=== PATIENT | male | born 1985 | race Caucasian/White ===

== ENCOUNTER 2022-06-27 21:48 | Emergency (ER) | payer SELFPAY ==
[2022-06-27 21:58] VITALS: BP 146/87; PULSE 113; RESP 29; TEMP 36.7; O2SAT 100; BMI 25.1
--- NOTE | 2022-06-27 22:11 | XRR_ITS ---
PROCEDURE INFORMATION: Exam: XR Chest Exam date and time: 06/27/2022 10:20 PM Age: 36 years old Clinical indication: Shortness of breath; Additional info: SOB TECHNIQUE: Imaging protocol: Radiologic exam of the chest. Views: 1 view. COMPARISON: No relevant prior studies available. FINDINGS: Lungs: Unremarkable. No consolidation. Pleural spaces: Unremarkable. No pleural effusion. No pneumothorax. Heart/Mediastinum: Unremarkable. No cardiomegaly. Bones/joints: Unremarkable. XR/XR chest 1V portable [id number] IMPRESSION: No acute findings.
--- NOTE | 2022-06-27 22:12 | W.ED.SOB ---
HPI - SOB/Dyspnea General: Chief Complaint: Shortness of Breath/Dyspnea Stated Complaint: SOB, Cough Time Seen by Provider: 06/27/22 22:04 Source: patient Mode of arrival: ambulatory Limitations: no limitations History of Present Illness: HPI Narrative: 36-year-old male states throughout the day has had increasing shortness of breath he states he feels like his heart is racing he can feel something behind his heart he says he has tingling down both his arms and is having carpopedal spasms. He states he had a history of anxiety in the past. Denies any chest pain denies any fever denies any cough denies any worsening proving factors patient appears anxious here and is tachypneic. Associated symptoms: Reports palpitations; Deny abdominal pain, fever(s), nausea or vomiting Review of Systems Const: Denies: fever(s), chills, body aches or change in appetite Eyes: Denies: blurry vision or eye discomfort ENMT: Denies: throat pain or dental pain Card: Reports: palpitations Resp: Reports: dyspnea GI: Denies: abdominal pain, nausea, vomiting or diarrhea : Denies: dysuria Musc: Denies: neck pain or back pain Skin/Breast: Denies: rash Neuro: Denies: headache(s) Psych: Denies: depression Ace/Lymph: Denies: easy bruising All/Imm: Denies: urticaria PFSH ED PFSH: Social History (Updated 06/27/22 @ 22:13 by Janie Josue MD) Alcohol intake: unknown Physical Exam Const: COMMON NORMALS: patient oriented x3 GENERAL APPEARANCE: anxious HENMT: COMMON NORMALS: normocephalic and atraumatic HEAD & SCALP: normocephalic and atraumatic Eye: COMMON NORMALS: Equal, round and reactive pupils present and EOMs intact bilaterally PUPIL: Yes Equal, round and reactive pupils present Neck/C-Spine: COMMON NORMALS: full ROM and supple Chest: COMMONS NORMALS: normal inspection of the chest and normal palpation of entire chest wall Resp: COMMON NORMALS: normal respiratory effort, No retractions, No use of accessory muscles and clear to auscultation bilaterally EFFORT & INSPECTION: Yes tachypneic AUSCULTATION: clear to auscultation bilaterally Cardio: COMMON NORMALS: regular rhythm and No murmurs present (Cardio) RATE: tachycardic RHYTHM: regular rhythm GI: COMMON NORMALS: Normal to inspection, nondistended, normoactive bowel sounds present, Soft to palpation, non-tender and no masses PALPATION: Yes Soft to palpation Extremity: COMMON NORMALS: normal to inspection and full ROM Neuro: COMMON NORMALS: patient oriented x3, moves all extremities and no focal motor deficits Psych: COMMON NORMALS: mental status grossly normal, Normal thought process present and cooperative THOUGHT PROCESS: Normal thought process present Skin: COMMON NORMALS: no rashes or lesions noted and no wounds GENERAL SKIN EXAM: no rashes or lesions noted Course Vital Signs: Vital signs: Vital Signs Temperature 98.1 F 06/27/22 21:58 Pulse Rate 113 H 06/27/22 21:58 Respiratory Rate 29 H 06/27/22 21:58 Blood Pressure 146/87 06/27/22 21:58 Pulse Oximetry 100 06/27/22 21:58 Oxygen Delivery Me thod 06/27/22 21:58 MDM - SOB/Dyspnea Medical Decision Making Patient presents here with shortness of breath. Quite anxious possibly an anxiety attacks feels much improved after IV fluids and Ativan pill. His heart rate is improved so is his tachypnea patient's x-ray EKG and blood work are all normal he has no signs of pulm embolism he is stable for discharge he is to follow-up with his PCP and return if worsening. Lab Data : 06/27/22 22:06/27/22 22: Labs/Radiology: Laboratory Results WBC 5.7 10^3/uL (4.0-10.0) 06/27/22: RBC 4.98 10^6/uL (4.1-5.3) 06/27/22 22: Hgb 15.2 g/dL (11.7-16.6) 06/27/22 22: Hct 42.9 % (42.0-52.0) 06/27/22: MCV 86.1 fl (80-94) 06/27/22 22: MCH 30.5 pg (28.0-34.0) 06/27/22 22: MCHC 35.4 g/dL (30.0-36.0) 06/27/22 22: RDW 12.4 % (12.1-15.1) 06/27/22: Plt Count 247 10^3/cmm (130-400) 06/27/22: MPV 9.6 fL (7.4-10.4) 06/27/22: Neut % (Auto) 63.1 % 06/27/22: Lymph % (Auto) 26.1 % 06/27/22: [place] % (Auto) 6.5 % 06/27/22: Eos % (Auto) 3.2 % 06/27/22: Baso % (Auto) 0.7 % 06/27/22: Neut # (Auto) 3.61 10^3/uL (1.8-7.7) 06/27/22 Lymph # (Auto) 1.5 10^3/uL (0.8-4.8) 06/27/22: [place] # (Auto) 0.4 10^3/uL (0.2-0.9) 06/27/22 Eos # (Auto) 0.2 10^3/uL (0.0-0.8) 06/27/22: Baso # (Auto) 0.0 10^3/uL (0.0-0.1) 06/27/22 Nucleated RBC % (auto) 0 % 06/27/22 Nucleated RBCs # 0.0 /100WBC 06/27/22: Sodium 138 mmol/L (136-145) 06/27/22: Potassium 3.9 mmol/L (3.5-5.1) 06/27/22: Chloride 102 mmol/L (98-107) 06/27/22: Carbon Dioxide 22 mmol/L (22-29) 06/27/22: Anion Gap 17.9 (5-19) 06/27/22: BUN 15 mg/dL (6-20) 06/27/22: Creatinine 0.8 mg/dL (0.7-1.2) 06/27/22 22: GFR Calculation 109.4 mL/min (90-130) 06/27/22: Glucose 125 mg/dL (65-115) H 06/27/22 22:27 Calculated Osmolality 288 mOsm/kg (285-295) 06/27/22 22: Calcium 9.3 mg/dL (8.5-10.5) 06/27/22 22: Total Bilirubin 0.4 mg/dL (0.15-1.2) 06/27/22 22:27 AST 12 U/L (0-40) 06/27/22 22: ALT 15 U/L (0-41) 06/27/22 22: Alkaline Phosphatase 92 U/L (40-130) 06/27/22 22: Troponin T Baseline 12 ng/L (0-15) 06/27/22 22: NT-Pro-B Natriuret Pep 5 pg/mL (0-125) 06/27/22 22: Total Protein 6.6 g/dL (6.6-8.7) 06/27/22 22: Albumin 4.4 g/dL (3.5-5.2) 06/27/22 22: Globulin 2.2 g/dL (1.3-4.6) 06/27/22 22:27 EKG Data EKG 1: I personally reviewed and interpreted this EKG as follows: EKG Interpretation Date: 06/27/22 EKG interpretation time: 22:43 Interpretation: Normal sinus rhythm heart rate [address] or T wave abnormalities QRS 93 QTc 386 Discharge Plan Discharge Patient Disposition: Home Clinical Impression: Shortness of breath Discharge Orders: Discharge ED (Routine); Ordered 06/27/22 Ordered By: Janie Josue Discharge Diet: Advance as tolerated Discharge Activity: Resume usual activity Patient Instructions: Shortness of Breath (ED) Coding Level of Care Code ED Waiter/Waitress Formal for Chg Fwd Exam Comprehensive
[2022-06-27] MEDS: sodium chloride 0.9% 1,000 ML 999 ML IV (22:25)
[2022-06-27] MEDS: LORazepam 2 mg Tablet PO (22:25)
[2022-06-27 22:35] LABS: Basophils % 0.7 %; Eosinophils # 0.2 10^3/uL (0.0-0.8); Eosinophils % 3.2 %; Hematocrit 42.9 % (42.0-52.0); Hemoglobin 15.2 g/dL (11.7-16.6); Lymphocytes # 1.5 10^3/uL (0.8-4.8); Lymphocytes % 26.1 %; Mean Corpuscular HGB Conc 35.4 g/dL (30.0-36.0); Mean Corpuscular Hemoglobin 30.5 pg (28.0-34.0); Mean Corpuscular Volume 86.1 fl (80-94); Mean Platelet Volume 9.6 fL (7.4-10.4); Monocytes # 0.4 10^3/uL (0.2-0.9); Monocytes % 6.5 %; Neutrophils # 3.61 10^3/uL (1.8-7.7); Neutrophils % 63.1 %; Nucleated Red Blood Cells % 0 %; Platelet Count 247 10^3/cmm (130-400); Red Blood Count 4.98 10^6/uL (4.1-5.3); Red Cell Distribution Width 12.4 % (12.1-15.1); White Blood Count 5.7 10^3/uL (4.0-10.0)
--- NOTE | 2022-06-27 22:43 | ECG_ITS ---
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 Measurements Intervals [place] Rate: 78 P: 69 [place]: 174 QRS: 53 QRSD: 93 T: 51 QT: 352 QTc: 403 Interpretive Statements SINUS RHYTHM No previous ECG available for comparison Electronically Signed On 06-28-2022 16:27:08 CDT by Ramiro Delatorre M.D. [id number]
[2022-06-27 22:53] LABS: Troponin(5th) Baseline 12 ng/L (0-15)
[2022-06-27 23:03] LABS: Alanine Aminotransferase 15 U/L (0-41); Albumin Level 4.4 g/dL (3.5-5.2); Alkaline Phosphatase 92 U/L (40-130); Anion Gap 17.9 (5-19); Aspartate Amino Transferase 12 U/L (0-40); Blood Urea Nitrogen 15 mg/dL (6-20); Calcium 9.3 mg/dL (8.5-10.5); Carbon Dioxide 22 mmol/L (22-29); Chloride 102 mmol/L (98-107); Globulin 2.2 g/dL (1.3-4.6); Glomerular Filtration Rate 109.4 mL/min (90-130); Glucose 125 mg/dL (65-115); NT Pro B Type Natriuretic Pept 5 pg/mL (0-125); Osmolality Calculated 288 mOsm/kg (285-295); Potassium 3.9 mmol/L (3.5-5.1); Sodium 138 mmol/L (136-145); Total Bilirubin 0.4 mg/dL (0.15-1.2); Total Protein 6.6 g/dL (6.6-8.7)
[2022-06-27 23:36] VITALS: BP 138/76; PULSE 100; RESP 16; O2SAT 96
== END 2022-06-27 23:38 | disposition home or self-care (01) ==
PROVIDERS: Emergency Provider Emergency Medicine
DX: R06.02 Shortness of breath (principal)
CPT/HCPCS: 71045; 80053; 83880; 84484; 85025; 93005; 96360; 99285; J7030

== ENCOUNTER 2022-11-17 23:05 | Emergency (ER) | payer SELFPAY ==
[2022-11-17 23:12] VITALS: BP 126/87; PULSE 100; RESP 18; TEMP 36.8; O2SAT 100; BMI 22.9
--- NOTE | 2022-11-17 23:16 | W.ED.ALLEREA ---
HPI - Allergic Reaction General: Chief complaint: Allergic Reaction Stated complaint: allergic reaction, face swelling Time Seen by Provider: 11/17/22 23:09 History of Present Illness: HPI narrative: 37-year-old male patient comes in today for complaints of swelling to the face and tongue. Patient reports that he was started on Bactrim had taken it for 3 days and started having some swelling to the tongue. Patient was seen by primary care yesterday and was switched from Bactrim to clindamycin. Patient was recommended to take diphenhydramine and some prednisone for couple days. Patient appears nontoxic. Patient appears in no pain. Associated symptoms: Reports nausea Review of Systems ENMT: Reports: other (Swelling face and tongue) Card: Denies: chest pain Resp: Denies: dyspnea GI: Reports: nausea Neuro: Reports: confusion Physical Exam Const: COMMON NORMALS: alert HENMT: COMMON NORMALS: normocephalic and Normal external nose present HEAD & SCALP: normocephalic NOSE: Normal external nose present MOUTH: Normal oral and palatal mucosa present Resp: COMMON NORMALS: normal respiratory effort and clear to auscultation bilaterally AUSCULTATION: clear to auscultation bilaterally Cardio: COMMON NORMALS: regular rate and regular rhythm RATE: regular rate RHYTHM: regular rhythm GI: COMMON NORMALS: non-tender Extremity: COMMON NORMALS: normal to inspection and no pedal edema Neuro: SENSORIUM/ORIENTATION: Yes alert Skin: NARRATIVE SKIN EXAM: Healing lesion noted to the right forearm, right facial cheek, and left upper arm. Course Vital Signs: Vital signs: Vital Signs Temperature 98.2 F 11/17/22 23:12 Pulse Rate 100 11/17/22 23:12 Respiratory Rate 18 11/17/22 23:12 Blood Pressure 126/87 11/17/22 23:12 Pulse Oximetry 100 11/17/22 23:12 Oxygen Delivery Me thod 11/17/22 23:12 MDM - Allergic Reaction Medical Decision Making 37-year-old male patient comes in with adverse reaction to medication. Patient reports that he was on Bactrim and started having some swelling and discomfort through his face. Patient saw primary care yesterday and was switched from Bactrim to clindamycin. Patient reports that he has used Benadryl a couple times since then but tonight he felt more swelling to the tongue and face. On exam there is no significant swelling noted to the face or tongue. Posterior pharynx is pink and moist. Lungs are clear to auscultation. Abdomen soft and nontender. No edema is noted in the extremities. Differential diagnosis includes not limited to allergic reaction, adverse drug effect, anxiety about health. Patient was treated with 500 mL of saline per IV, 25 mg of Benadryl IV push, and 10 mg of dexamethasone IV push. Recommended holding oral antibiotics and continue mupirocin ointment due to the healing nature of lesions and no signs of significant redness or swelling. Patient reported understanding and agreed to plan. Discharge Plan Discharge Patient Disposition: Home Clinical Impression: Allergic reaction Qualifiers: Encounter type: initial encounter Qualified Code(s): T78.40XA - Allergy, unspecified, initial encounter Condition: Stable Discharge Orders: Discharge ED (Routine); Ordered 11/18/22 Ordered By: Martinez Nicole Discharge Diet: Usual diet Discharge Activity: Increase activity as tolerated Patient Instructions: Paresthesia (ED) Activity Restrictions/Additional Instructions: Drink plenty of water. Hold your clindamycin until follow-up with primary care provider that started the medication. Use Benadryl, or Claritin/Zyrtec, for itching, facial swelling and oral discomfort. Continue with mupirocin ointment to the wounds until healed. Coding Level of Care Code ED Educational Therapy Teacher for Chg Fwd Exam Detailed
[2022-11-17] MEDS: sodium chloride 0.9% 500 ML 999 ML IV (23:28)
[2022-11-17] MEDS: diphenhydrAMINE 50 mg/mL SDV 1mL 25 MG IVP (23:35)
[2022-11-17] MEDS: dexamethasone 10 mg/mL INJ IVP (23:36)
== END 2022-11-18 00:34 | disposition home or self-care (01) ==
PROVIDERS: Emergency Provider Nurse Practitioner Family
DX: T78.40XA Allergy, unspecified, initial encounter (principal)
CPT/HCPCS: 96361; 96374; 96375; 99284; J1100; J1200; J7040

== ENCOUNTER 2023-07-26 02:25 | Emergency (ER) | payer SELFPAY ==
[2023-07-26 02:30] VITALS: BP 165/106; PULSE 127; RESP 20; TEMP 36.4; O2SAT 100; BMI 24.3
--- NOTE | 2023-07-26 02:33 | CTR_ITS ---
PROCEDURE INFORMATION: Exam: CT Head Without Contrast Exam date and time: 07/26/2023 2:41 AM Age: 37 years old Clinical indication: Stroke-like symptoms; Other: Right side of body and face weakness; Additional info: Symptoms of acute stroke TECHNIQUE: Imaging protocol: Computed tomography of the head without contrast. Radiation optimization: All CT scans at this facility use at least one of these dose optimization techniques: automated exposure control; mA and/or kV adjustment per patient size (includes targeted exams where dose is matched to clinical indication); or iterative reconstruction. Other technique: STROKE PROTOCOL was implemented. REPORTING DATA: Count of CT and Cardiac NM exams in prior 12 months: This patient has received 0 known CTs and 0 known cardiac nuclear medicine studies in the 12 months prior to the current study. COMPARISON: No relevant prior studies available. RADIATION DOSE METRICS: Total DLP (mGy-cm): 1191.98 FINDINGS: Brain: No focal hemorrhage or midline shift is identified. Cerebral ventricles: No ventriculomegaly or evidence of acute hydrocephalus. Paranasal sinuses: Minimal paranasal sinus disease. Mastoid air cells: Visualized mastoid air cells are well aerated. Bones/joints: No displaced skull fracture is noted. Soft tissues: Unremarkable. CT/CT head thrombolytic [id number] IMPRESSION: No acute intracranial abnormality. ASSESSMENT: ASPECTS ([place] Stroke Program Early CT Score) is 10.
--- NOTE | 2023-07-26 02:33 | ECG_ITS ---
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 Measurements Intervals [place] Rate: 117 P: 71 [place]: 167 QRS: 45 QRSD: 89 T: 75 QT: 340 QTc: 476 Interpretive Statements SINUS TACHYCARDIA POSSIBLE LEFT ATRIAL ENLARGEMENT [-0.1mV P-WAVE IN V1/V2] NONSPECIFIC T-WAVE ABNORMALITY ABNORMAL RHYTHM ECG No previous ECG available for comparison Electronically Signed On 07-26-2023 20:48:28 CDT by Ladonna Mobley M.D. [id number]
--- NOTE | 2023-07-26 02:34 | W.ED.NEUROSD ---
HPI - Neuro Symptoms/Deficit General: Chief Complaint: Neuro Symptoms/Deficit Stated Complaint: Possible Stroke Time Seen by Provider: 07/26/23 02:26 Source: patient Mode of arrival: ambulatory Limitations: no limitations History of Present Illness: 37-year-old male states that 30 minutes ago he was smoking a cigarette he states he started feeling tingling felt like his right side of his face was drooping I do not appreciate any facial droop. He states he also feels like he is having weakness to his right side. He denies any headache denies any cough he does have right-sided dental pain no history of strokes in the past. Last known normal was 2 AM Associated symptoms: Deny chest pain, headache(s), nausea or vomiting Review of Systems Const: Denies: fever(s) or chills Eyes: Denies: blurry vision or eye discomfort ENMT: Denies: throat pain or dental pain Card: Denies: chest pain Resp: Reports: dyspnea GI: Denies: abdominal pain, nausea, vomiting or diarrhea : Denies: dysuria Musc: Denies: neck pain or back pain Skin/Breast: Denies: rash Neuro: Reports: numbness in extremities and weakness in extremities; Denies: headache(s) Psych: Denies: depression NIH stroke score NIHSS: Level Of Consciousness - 1a: 0 Level Of Consciousness Questions - 1b: Both Correct Level Of Consciousness Commands - 1c: Both Correct Best Gaze - 2: Normal Visual Allison - 3: No Visual Loss Facial Palsy - 4: Normal Motor Arm Right - 5: Drift Motor Arm Left - 5: No Drift Motor Leg Right - 6: Drift Motor Leg Left - 6: No Drift Limb Ataxia - 7: Absent Sensory - 8: Normal Best Language - 9: No Aphasia Dysarthia - 10: Normal Extinction And Inattention - 11: 0 Score: Total Score: 2 Physical Exam Const: COMMON NORMALS: no acute distress, patient oriented x3 and healthy appearing HENMT: COMMON NORMALS: normocephalic and atraumatic HEAD & SCALP: normocephalic and atraumatic Eye: COMMON NORMALS: Equal, round and reactive pupils present and EOMs intact bilaterally PUPIL: Yes Equal, round and reactive pupils present Neck/C-Spine: COMMON NORMALS: full ROM and supple Chest: COMMONS NORMALS: normal inspection of the chest and normal palpation of entire chest wall Resp: COMMON NORMALS: normal respiratory effort, No retractions, No use of accessory muscles and clear to auscultation bilaterally AUSCULTATION: clear to auscultation bilaterally Cardio: COMMON NORMALS: regular rhythm and No murmurs present (Cardio) RATE: tachycardic RHYTHM: regular rhythm GI: COMMON NORMALS: Normal to inspection, nondistended, normoactive bowel sounds present, Soft to palpation, non-tender and no masses PALPATION: Yes Soft to palpation Extremity: COMMON NORMALS: normal to inspection and full ROM Neuro: COMMON NORMALS: patient oriented x3, moves all extremities and no focal motor deficits CRANIAL NERVES: Yes CN normal except as noted SPEECH: speech normal Psych: COMMON NORMALS: mental status grossly normal, Normal thought process present and cooperative THOUGHT PROCESS: Normal thought process present Skin: COMMON NORMALS: no rashes or lesions noted and no wounds GENERAL SKIN EXAM: no rashes or lesions noted Course Vital Signs: Vital signs: Vital Signs Temperature 97.6 F 07/26/23 03:27 Pulse Rate 127 H 07/26/23 03:27 Respiratory Rate 20 H 07/26/23 03:27 Blood Pressure 165/106 07/26/23 03:27 Pulse Oximetry 100 07/26/23 03:27 Oxygen Delivery Me thod Room Air 07/26/23 02:30 MDM - Neuro Symptoms/Deficit Medical Decision Making Patient presents here with right-sided toothache also been having paresthesias some mild right-sided weakness all of resolved he does have a history of migraines could be migraine with aura CT head shows no signs of a stroke he was evaluated by neurology who recommended outpatient follow-up and started on a baby aspirin we will start him amoxicillin for his dental pain he had no abscess or trismus Medical Records I reviewed the patient's medical records. Lab Data I reviewed the patient's lab results. 07/26/23 02:39 07/26/23 02:[address] 07/26/23 02:33 IMPRESSION: No acute intracranial abnormality. ASSESSMENT: ASPECTS ([place] Stroke Program Early CT Score) is 10. Laboratory Results WBC 7.08 10^3/uL (3.29-11.43) 07/26/23 02:39 RBC 5.69 10^6/uL (3.85-5.65) H 07/26/23 02:39 Hgb 17.00 g/dL (11.27-16.99) H 07/26/23 02:39 Hct 48.1 % (37-53) 07/26/23 02:39 MCV 84.5 fl (82-101) 07/26/23 02:39 MCH 29.9 pg (27-33) 07/26/23 02:39 MCHC 35.3 g/dL (30-55) 07/26/23 02:39 RDW 12.3 % (12.1-15.1) 07/26/23 02:39 Plt Count 230 10^3/cmm (157-399) 07/26/23 02:39 MPV 9.1 fL (7.4-10.4) 07/26/23 02:39 Neut % (Auto) 65.0 % 07/26/23 02:39 Lymph % (Auto) 20.8 % 07/26/23 02:39 [place] % (Auto) 9.2 % 07/26/23 02:39 Eos % (Auto) 4.0 % 07/26/23 02:39 Baso % (Auto) 0.6 % 07/26/23 02:39 Neut # (Auto) 4.61 10^3/uL (1.8-7.7) 07/26/23 02:39 Lymph # (Auto) 1.5 10^3/uL (0.8-4.8) 07/26/23 02:39 [place] # (Auto) 0.7 10^3/uL (0.2-0.9) 07/26/23 02:39 Eos # (Auto) 0.3 10^3/uL (0.0-0.8) 07/26/23 02:39 Baso # (Auto) 0.0 10^3/uL (0.0-0.1) 07/26/23 02:39 Nucleated RBC % (auto) 0 % 07/26/23 02:39 Nucleated RBCs # 0.0 /100WBC 07/26/23 02:39 PT 12.60 SECONDS (12.1-14.9) 07/26/23 02:39 INR 0.91 (0.8-1.2) 07/26/23 02:39 APTT 25.8 SECONDS (23.9-36.7) 07/26/23 02:39 Sodium 139 mmol/L (136-145) 07/26/23 02:39 Potassium 3.5 mmol/L (3.5-5.1) 07/26/23 02:39 Chloride 100 mmol/L (98-107) 07/26/23 02:39 Carbon Dioxide 21 mmol/L (22-29) L 07/26/23 02:39 Anion Gap 21.5 (5-19) H 07/26/23 02:39 BUN 20 mg/dL (6-20) 07/26/23 02:39 Creatinine 0.9 mg/dL (0.7-1.2) 07/26/23 02:39 GFR Calculation 95.0 mL/min (90-130) 07/26/23 02:39 Glucose 216 mg/dL (65-115) H 07/26/23 02:39 POC Glucose 206 mg/dL (70-110) H 07/26/23 02:35 Calculated Osmolality 297 mOsm/kg (285-295) H 07/26/23 02:39 Calcium 9.8 mg/dL (8.5-10.5) 07/26/23 02:39 Total Bilirubin 0.4 mg/dL (0.15-1.2) 07/26/23 02:39 AST 12 U/L (0-40) 07/26/23 02:39 ALT 13 U/L (0-41) 07/26/23 02:39 Alkaline Phosphatase 119 U/L (40-130) 07/26/23 02:39 Total Protein 7.4 g/dL (6.6-8.7) 07/26/23 02:39 Albumin 4.2 g/dL (3.5-5.2) 07/26/23 02:39 Globulin 3.2 g/dL (1.3-4.6) 07/26/23 02:39 All radiology interpretation(s) finalized by discharge Discharge Plan Discharge Patient Disposition: Home Clinical Impression: Pain, dental, Paresthesias Condition: Stable Prescriptions: New cephalexin 500 mg capsule 500 mg PO TID 7 Days Qty: 21 0RF Naprosyn 500 mg tablet 500 mg PO BID PRN (Reason: pain) Qty: 20 0RF aspirin 81 mg tablet,delayed release (DR/EC) 81 mg PO DAILY Qty: 30 0RF Discharge Orders: Discharge ED (Routine); Ordered 07/26/23 Ordered By: Janie Josue Discharge Diet: Advance as tolerated Discharge Activity: Resume usual activity Patient Instructions: Paresthesia (ED), Toothache (ED) Coding Level of Care Code ED Railroad Police Officer for Mushtaq Ramos
[2023-07-26 02:43] LABS: Glucose Point of Care 206 mg/dL (70-110)
[2023-07-26 02:45] LABS: Basophils % 0.6 %; Eosinophils # 0.3 10^3/uL (0.0-0.8); Hematocrit 48.1 % (37-53); Lymphocytes # 1.5 10^3/uL (0.8-4.8); Lymphocytes % 20.8 %; Mean Corpuscular HGB Conc 35.3 g/dL (30-55); Mean Corpuscular Hemoglobin 29.9 pg (27-33); Mean Corpuscular Volume 84.5 fl (82-101); Mean Platelet Volume 9.1 fL (7.4-10.4); Monocytes # 0.7 10^3/uL (0.2-0.9); Monocytes % 9.2 %; Neutrophils # 4.61 10^3/uL (1.8-7.7); Nucleated Red Blood Cells % 0 %; Platelet Count 230 10^3/cmm (157-399); Red Blood Count 5.69 10^6/uL (3.85-5.65); Red Cell Distribution Width 12.3 % (12.1-15.1); White Blood Count 7.08 10^3/uL (3.29-11.43)
[2023-07-26 02:54] LABS: INR 0.91 (0.8-1.2)
[2023-07-26 02:55] LABS: Partial Thromboplastin Time 25.8 SECONDS (23.9-36.7)
[2023-07-26 03:01] LABS: Alanine Aminotransferase 13 U/L (0-41); Albumin Level 4.2 g/dL (3.5-5.2); Alkaline Phosphatase 119 U/L (40-130); Anion Gap 21.5 (5-19); Aspartate Amino Transferase 12 U/L (0-40); Blood Urea Nitrogen 20 mg/dL (6-20); Calcium 9.8 mg/dL (8.5-10.5); Carbon Dioxide 21 mmol/L (22-29); Chloride 100 mmol/L (98-107); Creatinine Clr Calc Pharmacy 118.6477; Globulin 3.2 g/dL (1.3-4.6); Glucose 216 mg/dL (65-115); Osmolality Calculated 297 mOsm/kg (285-295); Potassium 3.5 mmol/L (3.5-5.1); Sodium 139 mmol/L (136-145); Total Bilirubin 0.4 mg/dL (0.15-1.2); Total Protein 7.4 g/dL (6.6-8.7)
[2023-07-26] MEDS: aspirin 81 mg Chew Tablet PO (03:13)
[2023-07-26] MEDS: cephALEXin 500 mg Capsule PO (03:23)
[2023-07-26 03:27] VITALS: BP 165/106; PULSE 127; RESP 20; TEMP 36.4; O2SAT 100
--- NOTE | 2023-07-26 12:50 | PC.SOCIAL ---
Attempted to reach patient to arrange PCP; called number on file, was hung up on.
--- NOTE | 2023-07-26 18:22 | PM.SAN ---
Stroke Alert Activation ED Arrival Date: 07/26/23 ED Arrival Time: 02:30 ED Physican at Bedside: 02:30 Last Known Normal/at Baseline: < 1 hour ago Other Last Known Well Infomation: Stroke alert was activated at [address] Josue for this patient who presented with right-sided numbness and weakness. The patient immediately announced that he was fearful that he was having a stroke and that if anyone alleged that he was having a panic attack he would plan a lawsuit. Dr. Josue demonstrated that the patient was not moving his right arm and leg as well as his left and gave him a NIH stroke scale score of [address] Josue called me and sent the patient on to CAT scan. When the patient returned from CAT scan I performed a telemetry exam. Patient was able to stand up at the bedside, demonstrated no drift of the extended arms, full facial movements, normal eye movements and he was able to march in place and stand for an extended length of time talking with me with no residual symptoms. Stroke Alert Activated by: Dr. Josue Stroke Alert Activation Time: 02:34 Stroke MD @ Bedside Date: 07/26/23 Stroke MD @ Bedside Time: 02:35 NIH Stroke Scale Time: 02:45 NIH stroke score NIHSS: Level Of Consciousness - 1a: 0 Level Of Consciousness Questions - 1b: Both Correct Level Of Consciousness Commands - 1c: Both Correct Best Gaze - 2: Normal Visual Allison - 3: No Visual Loss Facial Palsy - 4: Normal Motor Arm Right - 5: No Drift Motor Arm Left - 5: No Drift Motor Leg Right - 6: No Drift Motor Leg Left - 6: No Drift Limb Ataxia - 7: Absent Sensory - 8: Normal Best Language - 9: No Aphasia Dysarthia - 10: Normal Extinction And Inattention - 11: 0 Score: Total Score: 0 Stroke Alert Data/Treatment Time to CT of Head: 02:35 CT Results Time: 02:41 CT Impression: No acute intracranial abnormality Critical Care Time Critical Care Time: less than 30 mins Additional information about critical care time: 25 minutes A&P Assessment and plan (1) TIA (transient ischemic attack): Transient right hemiparesis, completely resolved. He thinks maybe it was because he has a dental abscess. He has no residual findings at the time of my examination, which was performed soon after his arrival. His NIH stroke scale score is currently 0 and there is no indication for further treatment. Since his symptoms were fairly mild and transient I do not think any further work-up is necessary at this time. He should be referred to the [facility] for follow-up and further testing as needed. Aspirin 81 mg a day and I advised the patient to take an aspirin every day for stroke prevention. I advised him to avoid smoking. Coding Level of Care Code Acute Code for [employer] Fwd Diagnoses TIA (transient ischemic attack) G45.9 Time Spent (min) 25
== END 2023-07-26 03:28 | disposition home or self-care (01) ==
PROVIDERS: Emergency Provider Emergency Medicine
DX: K08.89 Other specified disorders of teeth and supporting structures (principal); R20.2 Paresthesia of skin; Z79.82 Long term (current) use of aspirin
CPT/HCPCS: 36416; 70450; 80053; 82962; 85025; 85610; 85730; 93005; 99285

== ENCOUNTER → 2024-07-16 14:40 | Outpatient (BNVA) | payer SELFPAY | PROVIDERS: Visit Provider Physician Assistant | DX: S62.306A Unspecified fracture of fifth metacarpal bone, right hand, initial encounter for closed fracture; W22.8XXA Striking against or struck by other objects, initial encounter | CPT/HCPCS: 73130 ==

== ENCOUNTER → 2024-07-23 15:56 | Outpatient (BNVA) | payer SELFPAY | PROVIDERS: Visit Provider Student in an Organized Health Care Education/Training Program | DX: S62.306A Unspecified fracture of fifth metacarpal bone, right hand, initial encounter for closed fracture (principal); X58.XXXA Exposure to other specified factors, initial encounter | CPT/HCPCS: 73130 ==